=== PATIENT | female | born 1970 | race Caucasian/White ===

== ENCOUNTER → 2019-07-22 | Outpatient (CLI) | payer SELFPAY ==
[~2019-07-22] MED LIST: ALPR0.5T7 PO; ONDA4TAB7 PO; OXYC-302 PO; OXYC-306 PO; POTA99TA2 PO; SERT100T PO; potassium PO
[2019-07-22 13:04] LABS: CHLORIDE 106 mmol/L (98-107)
[2019-07-22 13:08] LABS: MEAN CORPUSCULAR HEMOGLOBIN 28.9 pg (27.0-34.8); MEAN CORPUSCULAR VOLUME 87.5 fL (80-100); MEAN PLATELET VOLUME 6.3 fL (7.4-10.4); PLATELET COUNT 280 x10^3/uL (130-400); RED CELL DISTRIBUTION WIDTH 29.2 % (9.6-15.2)
[2019-07-22 13:11] LABS: ALANINE AMINOTRANSFERASE 42 U/L (12-78); ALBUMIN 3.9 g/dL (3.4-5.0); ALKALINE PHOSPHATASE 99 U/L (45-117); ANION GAP 7 mmol/L (5-15); BILIRUBIN,TOTAL 0.5 mg/dL (0.2-1.0); CALCIUM 9.3 mg/dL (8.5-10.1); CREATININE 0.65 mg/dL (0.55-1.02)
[2019-07-22 13:14] LABS: PROTHROMBIN TIME 10.5 Seconds (9.6-11.5)
[2019-07-22 13:27] LABS: BASOPHILS # (AUTO) 0.01 x10^3/uL (0-0.1); BASOPHILS % (AUTO) 0 % (0-1); EOSINOPHILS # (AUTO) 0.08 x10^3/uL (0-0.4); EOSINOPHILS % (AUTO) 2 % (1-7); LYMPHOCYTES # (AUTO) 0.91 x10^3/uL (1-3.4); LYMPHOCYTES % (AUTO) 28 % (22-44); MD SCAN; MONOCYTES # (AUTO) 0.33 x10^3/uL (0.2-0.8); MONOCYTES % (AUTO) 10 % (2-9); NEUTROPHILS # (AUTO) 1.93 x10^3/uL (1.8-6.8); NEUTROPHILS % (AUTO) 59 % (42-75)
== END | disposition home or self-care (01) ==
LOC: STAR 11:44
PROVIDERS: ATTEND Specialist
DX: Z01.818 Encounter for other preprocedural examination (principal); C54.1 Malignant neoplasm of endometrium
CPT/HCPCS: 36415; 71046; 80053; 85025; 85610; 85730; 93005

== ENCOUNTER 2019-07-26 05:24 | Day surgery (SDC) | payer SELFPAY ==
[~2019-07-26] VITALS: Ht 167.6 cm; Wt 72.0 kg
[2019-07-26 06:13] VITALS: BP 128/84
[2019-07-26] MEDS ORDERED: LACTATED RINGERS 1,000 ML IV SCH (06:13)
[2019-07-26] MEDS ORDERED: CEFOTETAN PMX 2GM/50ML 50 ML IV ONE (06:30)
[2019-07-26] MEDS ORDERED: MIDAZOLAM 1 MG/ML, 2ML ONE (07:20)
[2019-07-26] MEDS ORDERED: FENTANYL PF 250 MCG/5ML ONE (07:21)
[2019-07-26] MEDS ORDERED: ROCURONIUM 10MG/ML,5ML ONE (07:22)
[2019-07-26] MEDS ORDERED: SUCCINYLCHOLINE 20 MG/ML, 10ML ONE (07:23)
[2019-07-26] MEDS ORDERED: DEXAMETHASONE 4 MG/ML, 1ML ONE ×2 (07:27)
[2019-07-26] MEDS ORDERED: PROPOFOL 10 MG/ML, 20ML ONE (07:28)
[2019-07-26] MEDS ORDERED: GLYCOPYRROLATE 0.2MG/1ML, 5ML ONE (08:35)
[2019-07-26] MEDS ORDERED: NEOSTIGMINE 1 MG/ML, 10ML ONE (08:35)
[2019-07-26] MEDS ORDERED: ONDANSETRON 2MG/ML, 2ML ONE ×2 (08:35)
[2019-07-26] MEDS ORDERED: KETOROLAC 30 MG/1 ML ONE (08:35)
[2019-07-26] MEDS ORDERED: ALBUTEROL SULFATE 2.5 MG/3 ML NPPB PRN (09:00)
[2019-07-26] MEDS ORDERED: ACETAMINOPHEN 325 MG TABLET PO PRN (09:00)
[2019-07-26] MEDS ORDERED: OXYcodone 5 MG/5 ML ORAL.SOL UDC PO PRN (09:00)
[2019-07-26] MEDS ORDERED: ONDANSETRON 2MG/ML, 2ML IV PRN (09:00)
[2019-07-26] MEDS ORDERED: PROMETHAZINE 25 MG/ML, 1ML IV PRN (09:00)
[2019-07-26] MEDS ORDERED: hydrALAzine 20 MG/ML, 1ML IV PRN (09:00)
[2019-07-26] MEDS ORDERED: MIDAZOLAM 1 MG/ML, 2ML IV PRN (09:00)
[2019-07-26] MEDS ORDERED: FENTANYL PF 100 MCG/2ML IV PRN (09:00)
[2019-07-26] MEDS ORDERED: PROMETHAZINE 12.5 MG SUPP PR PRN (09:00)
[2019-07-26] MEDS ORDERED: EPHEDRINE 50 MG/ML, 1ML IVPush PRN (09:00)
[2019-07-26] MEDS ORDERED: DIAZEPAM 5 MG/ML, 2ML IVPush PRN (09:00)
[2019-07-26] MEDS ORDERED: LABETALOL 5MG/ML, 20ML IV PRN (09:00)
[2019-07-26] MEDS ORDERED: ONDANSETRON ODT 8 MG PO PRN (09:00)
[2019-07-26] MEDS ORDERED: HALOPERIDOL 5 MG/ML IV PRN (09:00)
[2019-07-26] MEDS ORDERED: MEPERIDINE/PF 25MG/ML,1ML IVPush PRN (09:00)
[2019-07-26] MEDS ORDERED: ACETAMINOPHEN 650 MG/20.3 ML UDC ONE (09:12)
[2019-07-26] MEDS ORDERED: MEPERIDINE/PF 25MG/ML,1ML ONE (09:13)
[2019-07-26] MEDS ORDERED: OXYcodone 5 MG/5 ML ORAL.SOL UDC ONE (09:13)
[2019-07-26] MEDS ORDERED: HYDROmorphone 1 MG/ML, 1ML VIAL ONE (09:34)
[2019-07-26] MEDS: HYDROmorphone 2 MG/ML, 1ML IVPush PRN ×2 (09:37→09:47)
== END 2019-07-26 11:20 | disposition home or self-care (01) ==
LOC: OUT 05:24
PROVIDERS: ATTEND Specialist
DX: Z45.2 Encounter for adjustment and management of vascular access device (principal); Z79.899 Other long term (current) drug therapy; Z85.42 Personal history of malignant neoplasm of other parts of uterus; Z92.21 Personal history of antineoplastic chemotherapy; Z90.710 Acquired absence of both cervix and uterus; Z90.722 Acquired absence of ovaries, bilateral; Z90.79 Acquired absence of other genital organ(s); Z90.49 Acquired absence of other specified parts of digestive tract; Z98.890 Other specified postprocedural states; Z88.8 Allergy status to other drugs, medicaments and biological substances; Z83.3 Family history of diabetes mellitus; Z80.0 Family history of malignant neoplasm of digestive organs; Z80.1 Family history of malignant neoplasm of trachea, bronchus and lung
CPT/HCPCS: 36415; 36590; 86850; 86900; J0330; J1100; J1170; J1885; J2175; J2250; J2405; J2704; J2710; J3010; J7120